=== PATIENT | female | born 1960 | race Asian ===

== ENCOUNTER 2017-08-01 07:45 | Emergency (ER) | payer OTHER ==
[~2017-08-01] VITALS: Ht 157.5 cm; Wt 64.9 kg
[2017-08-01 07:51] VITALS: Ht 157.5 cm; Wt 64.9 kg
[2017-08-01 10:10] VITALS: BP 128/53
== END 2017-08-01 10:10 | disposition home or self-care (01) ==
LOC: ED 07:45
DX: S16.1XXA Strain of muscle, fascia and tendon at neck level, initial encounter (principal); S50.02XA Contusion of left elbow, initial encounter; S70.02XA Contusion of left hip, initial encounter; E11.9 Type 2 diabetes mellitus without complications; Z88.2 Allergy status to sulfonamides; V43.92XA Unspecified car occupant injured in collision with other type car in traffic accident, initial encounter; Y93.89 Activity, other specified; Y92.89 Other specified places as the place of occurrence of the external cause; Y99.8 Other external cause status
CPT/HCPCS: 82962; J1885

== ENCOUNTER 2020-02-11 09:47 | Inpatient (IN) | payer OTHER, SELFPAY ==
[~2020-02-11] VITALS: Ht 157.5 cm; Wt 62.1 kg
[2020-02-11 09:49] VITALS: Ht 157.5 cm; Wt 62.1 kg
[2020-02-11 10:29] LABS: BASOPHIL % 0.3 % (0-2); PLATELET COUNT 193 x10^3mcL (130-400); RED CELL DISTRIBUTION WIDTH 12.5 % (11.5-14.5)
[2020-02-11 11:15] LABS: CALCIUM 8.4 mg/dL (8.5-10.1); CARBON DIOXIDE 26.7 mmol/L (21-32); CREATININE SERUM 1.2 mg/dL (0.6-1.0); POTASSIUM SERUM 4.1 mmol/L (3.5-5.1)
[2020-02-11 11:21] LABS: BILIRUBIN TOTAL 0.53 mg/dL (0.20-1.00); C REACTIVE PROTEIN 5.6 mg/dL (<=0.9); TOTAL PROTEIN, SERUM 7.4 g/dL (6.4-8.2)
[2020-02-11 11:23] LABS: UA SPECIFIC GRAVITY 1.015 (1.005-1.035); microscopic required? YES; urine erythrocyte 2+ (NEGATIVE)
[2020-02-11 16:05] VITALS: BP 101/32
[2020-02-11 21:50] VITALS: BP 113/45
[2020-02-12 05:53] VITALS: BP 101/46
[2020-02-12 10:12] VITALS: BP 90/32
[2020-02-12 10:40] VITALS: BP 104/45
[2020-02-12 13:46] VITALS: BP 105/40
[2020-02-12 19:13] VITALS: BP 117/44
[2020-02-12 21:23] VITALS: BP 99/47
[2020-02-13 05:45] VITALS: BP 111/50
[2020-02-13 08:15] LABS: CALCIUM 9.3 mg/dL (8.5-10.1); CHLORIDE SERUM 106 mmol/L (98-107); CREATININE SERUM 0.6 mg/dL (0.6-1.0); GFR1 > 60 mL/min; GLUCOSE SERUM 131 mg/dL (74-106); SODIUM SERUM 140 mmol/L (136-145)
[2020-02-13 08:30] LABS: BASOPHIL % 0.3 % (0-2); PLATELET COUNT 199 x10^3mcL (130-400); RED CELL DISTRIBUTION WIDTH 12.4 % (11.5-14.5)
[2020-02-13 09:53] VITALS: BP 102/41
[2020-02-13 14:10] VITALS: BP 110/58
[2020-02-13 17:20] VITALS: BP 132/66
[2020-02-13 21:38] VITALS: BP 114/51
[2020-02-14 05:46] VITALS: BP 108/50
[2020-02-14 07:46] LABS: ALKALINE PHOSPHATASE 67 U/L (46-116); ALT/SGPT 50 U/L (14-59); AST/SGOT 46 U/L (15-37); BILIRUBIN TOTAL 0.57 mg/dL (0.20-1.00); CALCIUM 8.8 mg/dL (8.5-10.1); CARBON DIOXIDE 29.7 mmol/L (21-32); CHLORIDE SERUM 103 mmol/L (98-107); CREATININE SERUM 0.8 mg/dL (0.6-1.0); GFR1 > 60 mL/min; GLUCOSE SERUM 123 mg/dL (74-106); POTASSIUM SERUM 3.5 mmol/L (3.5-5.1); SODIUM SERUM 139 mmol/L (136-145)
[2020-02-14 07:48] LABS: ALBUMIN 2.8 g/dL (3.4-5.0)
[2020-02-14 09:12] VITALS: BP 104/43
[2020-02-14 12:00] VITALS: BP 118/51
[2020-02-14 17:43] VITALS: BP 138/52
[2020-02-14 20:55] VITALS: BP 110/54
[2020-02-15 06:14] VITALS: BP 103/50
[2020-02-15 08:16] LABS: ALKALINE PHOSPHATASE 73 U/L (46-116); ALT/SGPT 45 U/L (14-59); AST/SGOT 33 U/L (15-37); BILIRUBIN TOTAL 0.5 mg/dL (0.20-1.00); CALCIUM 9.5 mg/dL (8.5-10.1); CARBON DIOXIDE 31.6 mmol/L (21-32); CHLORIDE SERUM 99 mmol/L (98-107); CREATININE SERUM 0.6 mg/dL (0.6-1.0); GFR1 > 60 mL/min; GLUCOSE SERUM 210 mg/dL (74-106); SODIUM SERUM 139 mmol/L (136-145); TOTAL PROTEIN, SERUM 7.6 g/dL (6.4-8.2)
[2020-02-15 08:17] LABS: ALBUMIN 3.3 g/dL (3.4-5.0)
[2020-02-15 08:46] VITALS: BP 119/44
[2020-02-15 12:17] VITALS: BP 121/52
[2020-02-15 15:50] VITALS: BP 121/52
[2020-02-15 16:29] VITALS: BP 135/57
[2020-02-15 20:43] VITALS: BP 139/54
[2020-02-16 06:00] VITALS: BP 146/57
[2020-02-16 06:58] LABS: ALKALINE PHOSPHATASE 72 U/L (46-116); ALT/SGPT 41 U/L (14-59); AST/SGOT 26 U/L (15-37); BILIRUBIN TOTAL 0.4 mg/dL (0.20-1.00); CALCIUM 9.8 mg/dL (8.5-10.1); CARBON DIOXIDE 32.2 mmol/L (21-32); CHLORIDE SERUM 101 mmol/L (98-107); CREATININE SERUM 0.8 mg/dL (0.6-1.0); GFR1 > 60 mL/min; GLUCOSE SERUM 235 mg/dL (74-106); POTASSIUM SERUM 3.6 mmol/L (3.5-5.1); SODIUM SERUM 140 mmol/L (136-145); TOTAL PROTEIN, SERUM 8.1 g/dL (6.4-8.2)
[2020-02-16 07:06] LABS: BASOPHIL % 1.1 % (0-2); PLATELET COUNT 338 x10^3mcL (130-400); RED CELL DISTRIBUTION WIDTH 12.7 % (11.5-14.5)
[2020-02-16 07:16] LABS: ALBUMIN 3.3 g/dL (3.4-5.0)
[2020-02-16 09:22] VITALS: BP 124/46
[2020-02-16 13:32] VITALS: BP 140/56
[2020-02-16 17:14] VITALS: BP 130/62
[2020-02-16 22:46] VITALS: BP 133/56
[2020-02-17 06:00] VITALS: BP 116/51
[2020-02-17 07:03] LABS: BASOPHIL % 0.3 % (0-2); PLATELET COUNT 358 x10^3mcL (130-400); RED CELL DISTRIBUTION WIDTH 12.5 % (11.5-14.5)
[2020-02-17 07:29] LABS: ALBUMIN 3.5 g/dL (3.4-5.0); ALKALINE PHOSPHATASE 77 U/L (46-116); ALT/SGPT 72 U/L (14-59); AST/SGOT 59 U/L (15-37); BILIRUBIN TOTAL 0.48 mg/dL (0.20-1.00); CALCIUM 10.1 mg/dL (8.5-10.1); CARBON DIOXIDE 33.7 mmol/L (21-32); CHLORIDE SERUM 100 mmol/L (98-107); CREATININE SERUM 0.8 mg/dL (0.6-1.0); GFR1 > 60 mL/min; GLUCOSE SERUM 165 mg/dL (74-106); POTASSIUM SERUM 4.2 mmol/L (3.5-5.1); SODIUM SERUM 139 mmol/L (136-145)
[2020-02-17 07:30] LABS: TOTAL PROTEIN, SERUM 8.3 g/dL (6.4-8.2)
[2020-02-17 08:20] VITALS: BP 123/56
[2020-02-17 10:11] LABS: C REACTIVE PROTEIN 1.5 mg/dL (<=0.9)
[2020-02-17] MEDS ORDERED: VENTOLIN H0.09 MG/A1 INH (10:30)
[2020-02-17] MEDS ORDERED: DEC4 PO (10:34)
[2020-02-17] MEDS ORDERED: ELIQUIS2.5 MG PO (10:34)
[2020-02-17] MEDS ORDERED: FORTAMET500 M1 PO (10:35)
[2020-02-17] MEDS ORDERED: GLIPIZIDE XL2.5 M1 PO (10:36)
[2020-02-17] MEDS ORDERED: ZITHROMAX TRI-500 MG PO (10:44)
[2020-02-17 11:06] VITALS: BP 123/56
[2020-02-17 12:55] VITALS: BP 133/49
== END 2020-02-17 16:00 | disposition home or self-care (01) | DRG 137 ==
LOC: ED 09:47 → DU 12:05
PROVIDERS: Emergency Medicine; Family Medicine; ADMIT Internal Medicine; ATTEND Internal Medicine
PROC: XW033E5 Introduction of Remdesivir Anti-infective into Peripheral Vein, Percutaneous Approach, New Technology Group 5 (ICD-10-PCS; principal; 2020-02-13)
PROC: 30233K1 Transfusion of Nonautologous Frozen Plasma into Peripheral Vein, Percutaneous Approach (ICD-10-PCS; 2020-02-14)
DX: U07.1 COVID-19 (principal); E11.9 Type 2 diabetes mellitus without complications; E78.00 Pure hypercholesterolemia, unspecified; E78.5 Hyperlipidemia, unspecified; Z88.2 Allergy status to sulfonamides; Z79.84 Long term (current) use of oral hypoglycemic drugs
CPT/HCPCS: 36600; 82962; 83880; 85378; 87804; 94150; G0378; J1650; J7030; J7042; J7050; J8540; Q0092; U0003-CS